=== PATIENT | male | born 1980 | race Caucasian/White ===

== ENCOUNTER 2017-05-27 17:59 | Emergency (ER) | payer BC, OTHER ==
[~2017-05-27] VITALS: Ht 170.2 cm; Wt 90.0 kg
[2017-05-27 18:00] VITALS: BP 138/81; PULSE 74; RESP 18; TEMP 98.6; O2SAT 98
[2017-05-27 18:43] LABS: AUTOMATED NEUTROPHIL # 4.4 TH/MM3 (1.8-7.7); BASOPHIL # 0.2 TH/MM3 (0-0.2); BASOPHIL % 3.3 % (0.0-2.0); EOSINOPHIL # 0.1 TH/MM3 (0-0.4); EOSINOPHIL % 1.9 % (0.0-4.0); HEMATOCRIT 50.1 % (39.0-51.0); HEMO FLAGS DIFF FINAL; LYMPH % 22.6 % (9.0-44.0); LYMPHOCYTE # 1.6 TH/MM3 (1.0-4.8); MEAN CELL VOLUME 81.9 FL (80.0-100.0); MEAN CORPUSCULAR HEMOGLOBIN 27.8 PG (27.0-34.0); MEAN CORPUSCULAR HGB CONC 33.9 % (32.0-36.0); MONO % 8.4 % (0.0-8.0); NEUT % 63.8 % (16.0-70.0); PLATELET COUNT 260 TH/MM3 (150-450); RED BLOOD COUNT 6.11 MIL/MM3 (4.50-5.90); RED CELL DISTRIBUTION WIDTH 17.3 % (11.6-17.2); WHITE BLOOD COUNT 6.9 TH/MM3 (4.0-11.0)
[2017-05-27] MEDS ORDERED: LEXA5TAB PO (18:45)
[2017-05-27 19:01] LABS: AMPHETAMINE, URINE NEG (NEG); BARBITURATES, URINE NEG (NEG); COCAINE, URINE NEG (NEG)
[2017-05-27 19:03] LABS: BICARBONATE 28.7 MEQ/L (21.0-32.0); POTASSIUM 4.5 MEQ/L (3.5-5.1)
--- NOTE | 2017-05-27 19:28 | PD ---
HPI Chief Complaint: Psychiatric Symptoms Time Seen by Provider: 18:20 Travel History International Travel<30 days: No Contact w/Intl Traveler<30days: No Traveled to known affect area: No History of Present Illness HPI 36-year-old male with PMH of depression presents to the ED for evaluation of "weeks along" history of anhedonia, depression, passive suicidal ideation. Patient states that he recently moved from [place] to [place] for a job fell through. He moved to [facility] to live with a friend but this has caused him to be away from his girlfriend. 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 He states that he feels lonely and sometimes thinks "it would just be better if I didn't wake up" when he goes to sleep at night. He has a strong Buddhist background and adamantly denies suicidal ideation. Additionally, he has a multiyear history of using IV and oral steroids, last use "a month or 2 ago." He denies somatic complaints on presentation. He denies illicit substance or alcohol use. He takes Lexapro daily. PFSH Past Medical History Anxiety: Yes (PTSD) Depression: Yes Social History Alcohol Use: Yes Tobacco Use: No Substance Use: Yes (marijuana at times) Allergies-Medications (Allergen,Severity, Reaction): Coded Allergies: No Known Allergies (Unverified , 05/27/17) Reported Meds & Prescriptions Reported Meds & Active Scripts Active Reported Lexapro (Escitalopram Oxalate) 5 Mg Tab Unknown Dose PO DAILY Review of Systems Except as stated in HPI: all other systems reviewed are Neg Physical Exam Narrative GENERAL: Well-nourished, well-developed muscular white male in no acute distress. SKIN: Focused skin assessment warm/dry. HEAD: Normocephalic. EYES: No scleral icterus. No injection or drainage. NECK: Supple, trachea midline. No JVD or lymphadenopathy. CARDIOVASCULAR: Regular rate and rhythm without murmurs, gallops, or rubs. RESPIRATORY: Breath sounds clear and equal bilaterally. No accessory muscle use. GASTROINTESTINAL: Abdomen soft, non-tender, nondistended. Active bowel sounds. MUSCULOSKELETAL: No cyanosis, or edema. BACK: Nontender without obvious deformity. No CVA tenderness. Data Data Last Documented VS Vital Signs Date Time Temp Pulse Resp B/P Pulse Ox O2 Delivery O2 Flow Rate FiO2 05/27/17 18:00 98.6 74 18 138/81 98 Orders Complete Blood Count With Diff (05/27/17 18:06) Basic Metabolic Panel (Bmp) (05/27/17 18:06) Drug Screen, Random Urine (05/27/17 18:06) Psych Screen (05/27/17 18:29) Labs Laboratory Tests Test 05/27/17 18:20 White Blood Count 6.9 TH/MM3 Red Blood Count 6.11 MIL/MM3 Hemoglobin 17.0 GM/DL Hematocrit 50.1 % Mean Corpuscular Volume 81.9 FL Mean Corpuscular Hemoglobin 27.8 PG Mean Corpuscular Hemoglobin 33.9 % Concent Red Cell Distribution Width 17.3 % Platelet Count 260 TH/MM3 Mean Platelet Volume 9.5 FL Neutrophils (%) (Auto) 63.8 % Lymphocytes (%) (Auto) 22.6 % Monocytes (%) (Auto) 8.4 % Eosinophils (%) (Auto) 1.9 % Basophils (%) (Auto) 3.3 % Neutrophils # (Auto) 4.4 TH/MM3 Lymphocytes # (Auto) 1.6 TH/MM3 Monocytes # (Auto) 0.6 TH/MM3 Eosinophils # (Auto) 0.1 TH/MM3 Basophils # (Auto) 0.2 TH/MM3 CBC Comment DIFF FINAL Differential Comment Sodium Level 138 MEQ/L Potassium Level 4.5 MEQ/L Chloride Level 102 MEQ/L Carbon Dioxide Level 28.7 MEQ/L Anion Gap 7 MEQ/L Blood Urea Nitrogen 18 MG/DL Creatinine 1.38 MG/DL Estimat Glomerular Filtration 59 ML/MIN Rate Random Glucose 128 MG/DL Calcium Level 9.3 MG/DL Urine Opiates Screen NEG Urine Barbiturates Screen NEG Urine Amphetamines Screen NEG Urine Benzodiazepines Screen NEG Urine Cocaine Screen NEG Urine Cannabinoids Screen NEG MDM Medical Decision Making Medical Screen Exam Complete: Yes Emergency Medical Condition: Yes Differential Diagnosis Adjustment disorder versus anxiety versus bipolar versus depression versus dementia versus electrolyte disorder versus malingering versus mood disorder versus ODD versus psychosis versus PTSD versus schizophrenia versus schizoaffective disorder versus substance-induced mood disorder versus other Narrative Course 36-year-old male with PMH of depression presents to the ED for evaluation of "weeks along" history of anhedonia, depression, passive suicidal ideation. Patient states that he recently moved from [place] to [place] for a job fell through. He moved to [facility] to live with a friend but this has caused him to be away from his girlfriend. 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 He states that he feels lonely and sometimes thinks "it would just be better if I didn't wake up" when he goes to sleep at night. He has a strong Buddhist background and adamantly denies suicidal ideation. Additionally, he has a multiyear history of using IV and oral steroids, last use "a month or 2 ago." He denies somatic complaints on presentation. He denies illicit substance or alcohol use. He takes Lexapro daily. Vitals reviewed. Physical unremarkable. Mild elevation of the creatinine, the expected given the patient's body habitus. Tox screen negative. The patient is medically cleared for psychiatric evaluation. Please see psych notes for disposition. Diagnosis Primary Impression: Medical clearance for psychiatric admission Additional Impression: Depression Qualified Code: F32.9 - Depression, unspecified depression type Agnisezka Black May 27, 2017 19:28
[2017-05-27 20:29] VITALS: BP 163/77; PULSE 65; RESP 16; O2SAT 99
== END 2017-05-28 01:47 | disposition home or self-care (01) ==
LOC: NEPD 17:59 → NEPJ 05-28 01:47
DX: Z02.89 Encounter for other administrative examinations (principal); F32.9 Major depressive disorder, single episode, unspecified; Z79.899 Other long term (current) drug therapy; Z86.59 Personal history of other mental and behavioral disorders
CPT/HCPCS: 80048; 80307; 85025; 99283